=== PATIENT | female | born 1945 | race American Indian/Alaskan Native ===

== ENCOUNTER 2017-11-02 17:55 | Observation (INO) | payer MEDICARE ==
[2017-11-02] MEDS ORDERED: ASPIRIN PO ONE (18:34)
[2017-11-02 19:38] LABS: Hematocrit 35.1 % (30.3-42.9); Hemoglobin 11.1 gm/dl (10.1-14.3); INR 0.99 (0.87-1.13); Mean Corpuscular HGB Conc 32 % (30-34); Mean Corpuscular Volume 81 fl (79-97); Platelet Count 220 K/mm3 (140-440); Red Blood Count 4.34 M/mm3 (3.65-5.03); Red Cell Distribution Width 15.5 % (13.2-15.2)
[2017-11-02 19:47] LABS: BUN/Creatinine Ratio 39; Blood Urea Nitrogen 27 mg/dL (7-17); Calcium 9.8 mg/dL (8.4-10.2); Hemolysis Index 4
[2017-11-02 19:57] LABS: Mean Corpuscular Hemoglobin 26 pg (28-32)
[2017-11-02] MEDS ORDERED: ASPIRIN ONE (20:44)
[2017-11-02 22:05] LABS: Chol/HDL Ratio 3.11 %
[2017-11-03] MEDS ORDERED: NITROSTAT SL ONE (00:58)
[2017-11-03] MEDS ORDERED: ZOFRAN IV ONE (00:59)
[2017-11-03] MEDS ORDERED: SUBLIMAZE IV ONE (00:59)
[2017-11-03] MEDS ORDERED: CATAPRES PO ONE ×2 (00:59→05:07)
--- NOTE | 2017-11-03 01:00 | Emergency Department Report ---
HPI - General Chief Complaint: Headache Time Seen by Provider: 11/03/17 00:51 - HPI HPI: The patient 72-year-old female with a significant history of poorly controlled hypertension, presents for evaluation of headache. The patient reports 1-2 weeks of on and off headache, currently 10/10 in severity, throbbing in quality , frontal in location, and associated with dizziness, left flank pain, and left chest discomfort. She states that her chest discomfort has been mild to moderate in severity, tight in quality, exacerbated with movement, onset earlier today. She shares that she did not take her blood pressure medications today because it exacerbating her dizziness symptoms and headache. The patient denies fever, trauma to the head or chest, neck pain or stiffness, dyspnea, syncope, hemoptysis, paresthesias, or lateralizing motor deficit. ED Past Medical Hx - Past Medical History Hx Hypertension: Yes Hx Heart Attack/AMI: No Hx GERD: Yes Hx Liver Disease: No Hx Renal Disease: No Hx Sickle Cell Disease: No Hx Seizures: No Hx Asthma: No Hx COPD: No Hx Tuberculosis: No Hx HIV: No Additional medical history: hernia - Surgical History Hx Pacemaker: No Hx Internal Defibrillator: No Hx Cholecystectomy: Yes Additional Surgical History: thoracentesis 2010. bladder 2010, partial gastrectomy performed 2010 - Social History Smoking Status: Never Smoker Substance Use Type: None - Medications Home Medications: Home Medications Medication Instructions Recorded Confirmed Last Taken Type Clonidine HCl 1 tab PO BID 06/07/14 11/03/17 02/20/16 History LORazepam [Ativan] 1 tab PO BID 04/19/15 11/03/17 02/18/16 History Carvedilol [Coreg] 12.5 mg PO BID #60 tablet 04/20/15 11/03/17 Unknown Rx Ondansetron [Zofran ODT TAB] 4 mg PO Q8HR 04/24/15 11/03/17 02/19/16 History Sucralfate [Carafate] 2 tsp PO ACHS #1000 ml 02/20/16 11/03/17 Unknown Rx ED Review of Systems ROS: Stated complaint: HEAD PAIN AND BLURRED VISON Other details as noted in HPI Constitutional: denies: fever ENT: denies: throat or neck pain Respiratory: denies: cough, shortness of breath Cardiovascular: reports chest pain Endocrine: denies unexplained weight loss or gain Gastrointestinal: denies: abdominal pain, nausea Genitourinary: denies: dysuria Musculoskeletal: denies: leg swelling Skin: denies: rash Neurological: reports: headache Hematological/Lymphatic: denies: easy bleeding or easy bruising Psych: denies sadness or hopelessness Physical Exam - Physical Exam Vital Signs: Vital Signs 11/02/17 11/03/17 18:20 00:55 Temperature 98.4 F 98 F Pulse Rate 63 87 Respiratory 18 19 Rate Blood Pressure 184/81 Blood Pressure 241/96 [Left] O2 Sat by Pulse 98 98 Oximetry Physical Exam: General: well-nourished, well-developed, no acute distress Head: Normocephalic, atraumatic Eyes: normal sclera, PERRL, EOM intact ENT: Mucous membranes are pink and moist Neck: trachea midline, neck supple, No neck stiffness, no cervical adenopathy Respiratory: Breath sounds equal bilaterally, no wheezing, rales, or rhonchi Cardio: S1 and S2 present, no murmurs, rubs, gallops, capillary refill is brisk Abdomen: Normoactive bowel sounds, soft abdomen, no rigidity, no guarding or rebound tenderness, no flank tenderness Chest WALL/Back: No tenderness to palpation of the chest wall, no CVA tenderness with percussion Musc: No pitting edema Skin: No rash Neuro: alert oriented x4, normal cognition, speech normal no facial drooping, no uvula or tongue deviation on protrusion, no deficit with rotation of neck or shoulder shrug, no obvious gross motor deficit in the upper or lower extremities with flexion or extension at the shoulder, elbow, wrist, hip, knee, or ankle bilaterally, no obvious gross sensation deficit to crude touch or 2 pt discrimination, 2+ symmetric reflexes on DTR testing, no coordination deficit with [id number] or [id number] testing, Babinski downgoing Psych: Normal affect ED Course Vital Signs 11/02/17 11/03/17 18:20 00:55 Temperature 98.4 F 98 F Pulse Rate 63 87 Respiratory 18 19 Rate Blood Pressure 184/81 Blood Pressure 241/96 [Left] O2 Sat by Pulse 98 98 Oximetry ED Medical Decision Making - Lab Data Result diagrams: 11/02/17 19:08 11/02/17 19:08 - Medical Decision Making The patient was seen and examined by myself. The patient is placed on a compliance monitor and continuous pulse ox. On initial evaluation, the patient was found to be in no distress. EKG was negative for findings suggestive of acute cardiac infarct. The patient is given an aspirin, a nitroglycerin tablet, IV fentanyl for her pain, and a tablet of clonidine for her elevated blood pressure. Labs and imaging are obtained. Chest x-ray is negative for pneumothorax, focal consolidation, pulmonary vascular congestion, pleural effusion, or other obvious acute cardiopulmonary disease process. Lab results revealed elevated troponin level, and otherwise labs were non-revealing including WBC, hemoglobin, hematocrit, electrolytes, renal function. CT scan the head is negative for acute intracranial disease process. The patient was reevaluated and reported that their symptoms were improved. As the patient has chest pain and risk factors for development of acute coronary event, the patient will be admitted for close cardiopulmonary monitoring, serial troponins, and evaluation by cardiology. The physician on-call was contacted. They presented to the emergency department and evaluated the patient. They agreed to admit the patient. The ED admit order was placed. The patient was admitted in guarded condition. Critical care attestation.: If time is entered above; I have spent that time in minutes in the direct care of this critically ill patient, excluding procedure time. ED Disposition Clinical Impression: Elevated troponin, Acute non intractable tension-type headache, Hypertensive emergency without congestive heart failure, Acute chest pain Disposition: OP ADMIT IP TO THIS HOSP Is pt being admited?: Yes Does the pt Need Aspirin: Yes Condition: Stable Time of Disposition: 01:00
[2017-11-03] MEDS ORDERED: BABY ASPIRIN PO ONE (01:54)
[2017-11-03] MEDS ORDERED: ULTRAM PO ONE (03:00)
[2017-11-03 04:14] LABS: Color,Urine Yellow (Yellow)
[2017-11-03 04:15] LABS: Bilirubin,Urine NEG (Negative); Blood,Urine NEG (Negative); Mucus,Urine FEW /HPF
[2017-11-03] MEDS ORDERED: SODIUM CHLORIDE FLUSH SYRINGE 10 ML IV PRN (05:08)
[2017-11-03] MEDS ORDERED: MILK OF MAGNESIA PO PRN (05:08)
[2017-11-03] MEDS ORDERED: NORMODYNE IV ONE (05:08)
[2017-11-03] MEDS ORDERED: DULCOLAX PR PRN (05:08)
[2017-11-03] MEDS ORDERED: PHENERGAN PR PRN (05:08)
[2017-11-03] MEDS ORDERED: REGLAN PO PRN (05:08)
[2017-11-03] MEDS ORDERED: TYLENOL PO PRN (05:08)
--- NOTE | 2017-11-03 05:13 | History and Physical Report ---
History of Present Illness Date of examination: 11/03/17 Date of admission: 11/03/17 03:00 Chief complaint: Hypertensive urgency History of present illness: Patient is a 72 year old female with hx of HTN, chronic elevated troponin, PUD, who presents to the hospital with complaints of headche and blurry vision for 3 days. Patient although informed the ED physician that she has been having theses symptoms for 1-2 weeks per ED documentation. She tells me this started following change in BP medication by her physician to Bidil from Clonidin due to uncontrolled BP. She reports that on starting the medication 3 days ago she experienced a left upper quadrant/submammary pain which was self relieving but then continued to experience. She at the time of my visit denies any chest pain but specifically ask if these sysmptoms are related to dementia. The patient denies fever, trauma to the head or chest, neck pain or stiffness, dyspnea, syncope, hemoptysis, paresthesias, or lateralizing motor deficit. Past History Past Medical History: CAD, COPD, hypertension, other (PUD, ?DEMENTIA) Past Surgical History: Other (thoracentesis, partial gastrectomy, bladder surgery) Social history: no significant social history, full code Family history: no significant family history Medications and Allergies Allergies Allergy/AdvReac Type Severity Reaction Status Date / Time adhesive Allergy Unknown Verified 05/31/14 02:36 ciprofloxacin Allergy Unknown Verified 05/31/14 02:36 Home Medications Medication Instructions Recorded Confirmed Last Taken Type Clonidine HCl 1 tab PO BID 06/07/14 11/03/17 02/20/16 History LORazepam [Ativan] 1 tab PO BID 04/19/15 11/03/17 02/18/16 History Carvedilol [Coreg] 12.5 mg PO BID #60 tablet 04/20/15 11/03/17 Unknown Rx Ondansetron [Zofran ODT TAB] 4 mg PO Q8HR 04/24/15 11/03/17 02/19/16 History Sucralfate [Carafate] 2 tsp PO ACHS #1000 ml 02/20/16 11/03/17 Unknown Rx Active Meds: Active Medications Acetaminophen (Tylenol) 650 mg PO Q4H PRN PRN Reason: Pain, Mild (1-3) Amitriptyline HCl (Elavil) 10 mg PO QHS AMELIE Bisacodyl (Dulcolax) 10 mg [place] QDAY PRN PRN Reason: Constipation Carvedilol (Coreg) 12.5 mg PO BID [facility] Clonidine HCl (Catapres) 0.2 mg PO TID [facility]IE Hydralazine HCl (Apresoline) 50 mg PO Q8HR [facility] Hydrochlorothiazide (Hctz) 12.5 mg PO QDAY [facility] Ceftriaxone Sodium 1 gm/ (Sodium Chloride) 20 mls @ 20 mls/10 min IV Q24HR AMELIE ; Protocol Labetalol HCl (Normodyne) 10 mg IV ONCE ONE Stop: 11/03/17 05:09 Lisinopril (Zestril) 20 mg PO QDAY [facility]IE Lorazepam (Ativan) mg PO BID [facility] Magnesium Hydroxide (Milk Of Magnesia) 30 ml PO Q4H PRN PRN Reason: Constipation Metoclopramide HCl (Reglan) 10 mg PO Q6H PRN PRN Reason: Nausea And Vomiting Ondansetron HCl (Zofran Odt) 4 mg PO Q8HR [facility] Pravastatin Sodium (Pravachol) 80 mg PO QHS AMELIE Promethazine HCl (Phenergan) 25 mg [place] Q6H PRN PRN Reason: Nausea And Vomiting Sodium Chloride (Sodium Chloride Flush Syringe 10 Ml) 10 ml INJ PRN PRN PRN Reason: LINE FLUSH Sucralfate (Carafate) 1 gm PO ACHS [facility] Review of Systems All systems: negative Constitutional: malaise Eyes: bilateral: blurred vision Ears, nose, mouth and throat: headache Cardiovascular: chest pain Exam - Physical Exam Narrative exam: VITAL SIGNS: Reviewed. GENERAL: The patient appeared well nourished and normally developed. Vital signs as documented. HEAD: No signs of head trauma. EYES: Pupils are equal. Extraocular motions intact. EARS: Hearing grossly intact. MOUTH: Oropharynx is normal. NECK: No adenopathy, no JVD. CHEST: Chest with clear breath sounds bilaterally. No wheezes, rales, or rhonchi. CARDIAC: Regular rate and rhythm. S1 and S2, without murmurs, gallops, or rubs. VASCULAR: No Edema. Peripheral pulses normal and equal in all extremities. ABDOMEN: Soft, without detectable tenderness. No sign of distention. No rebound or guarding, and no masses palpated. Bowel Sounds normal. MUSCULOSKELETAL: Good range of motion of all major joints. Extremities without clubbing, cyanosis or edema. NEUROLOGIC EXAM: Alert and oriented x 3. No focal sensory or strength deficits. Speech normal. Follows commands. PSYCHIATRIC: Mood normal. SKIN: No rash or lesions. - Constitutional Vitals: Temp Pulse Resp BP Pulse Ox 98 F 55 L 11 L 155/81 98 11/03/17 00:55 11/03/17 04:01 11/03/17 04:01 11/03/17 04:01 11/03/17 00:55 Results - Labs CBC & Chem 7: 11/02/17 19:08 11/02/17 19:08 Labs: Laboratory Last Values WBC 8.4 K/mm3 (4.5-11.0) 11/02/17 19:08 RBC 4.34 M/mm3 (3.65-5.03) 11/02/17 19:08 Hgb 11.1 gm/dl (10.1-14.3) 11/02/17 19:08 Hct 35.1 % (30.3-42.9) 11/02/17 19:08 MCV 81 fl (79-97) 11/02/17 19:08 MCH 26 pg (28-32) L 11/02/17 19:08 MCHC 32 % (30-34) 11/02/17 19:08 RDW 15.5 % (13.2-15.2) H 11/02/17 19:08 Plt Count 220 K/mm3 (140-440) 11/02/17 19:08 PT 13.6 Sec. (12.2-14.9) 11/02/17 19:08 INR 0.99 (0.87-1.13) 11/02/17 19:08 APTT 32.0 Sec. (24.2-36.6) 11/02/17 19:08 Sodium 139 mmol/L (137-145) 11/02/17 19:08 Potassium 4.1 mmol/L (3.6-5.0) 11/02/17 19:08 Chloride 104.9 mmol/L (98-107) 11/02/17 19:08 Carbon Dioxide 23 mmol/L (22-30) 11/02/17 19:08 Anion Gap 15 mmol/L 11/02/17 19:08 BUN 27 mg/dL (7-17) H 11/02/17 19:08 Creatinine 0.7 mg/dL (0.7-1.2) 11/02/17 19:08 Estimated GFR > 60 ml/min 11/02/17 19:08 BUN/Creatinine Ratio 39 % 11/02/17 19:08 Glucose 112 mg/dL (65-100) H 11/02/17 19:08 Calcium 9.8 mg/dL (8.4-10.2) 11/02/17 19:08 Troponin T 0.087 ng/mL (0.00-0.029) H D 11/03/17 01:18 Triglycerides 156 mg/dL (2-149) H 11/02/17 20:48 Cholesterol 131 mg/dL (50-199) 11/02/17 20:48 LDL Cholesterol Direct 73 mg/dL (50-130) 11/02/17 20:48 HDL Cholesterol 42 mg/dL (40-59) 11/02/17 20:48 Cholesterol/HDL Ratio 3.11 % 11/02/17 20:48 Urine Color Yellow (Yellow) 11/02/17 Unknown Urine Turbidity Clear (Clear) 11/02/17 Unknown Urine pH 6.0 (5.0-7.0) 11/02/17 Unknown Ur Specific [place] 1.012 (1.003-1.030) 11/02/17 Unknown Urine Protein 100 mg/dl mg/dL (Negative) 11/02/17 Unknown Urine Glucose (UA) Neg mg/dL (Negative) 11/02/17 Unknown Urine Ketones Neg mg/dL (Negative) 11/02/17 Unknown Urine Blood Neg (Negative) 11/02/17 Unknown Urine Nitrite Neg (Negative) 11/02/17 Unknown Urine Bilirubin Neg (Negative) 11/02/17 Unknown Urine Urobilinogen 2.0 mg/dL (<2.0) 11/02/17 Unknown Ur Leukocyte Esterase Lg (Negative) 11/02/17 Unknown Urine WBC (Auto) 10.0 /HPF (0.0-6.0) H 11/02/17 Unknown Urine RBC (Auto) 7.0 /HPF (0.0-6.0) 11/02/17 Unknown U Epithel Cells (Auto) 3.0 /HPF (0-13.0) 11/02/17 Unknown Urine Mucus Few /HPF 11/02/17 Unknown - Imaging and Cardiology CT Scan - head: image reviewed (no acute pathology) Assessment and Plan Assessment and plan: Patient is a 72 year old female with hx of HTN, chronic elevated troponin, PUD, who presents to the hospital with complaints of headche and blurry vision for 3 days. Patient although informed the ED physician that she has been having theses symptoms for 1-2 weeks per ED documentation. She tells me this started following change in BP medication by her physician to Bidil from Clonidin due to uncontrolled BP. She reports that on starting the medication 3 days ago she experienced a left upper quadrant/submammary pain which was self relieving but then continued to experience. She at the time of my visit denies any chest pain but specifically ask if these sysmptoms are related to dementia. The patient denies fever, trauma to the head or chest, neck pain or stiffness, dyspnea, syncope, hemoptysis, paresthesias, or lateralizing motor deficit. Hypertensive urgency Type 2 MT-chronically elevated Troponin PUD TIA with Blurry vision Acute Metabolic encephalopathy-Now resolved Bradycardia Atypical Chest pain Acute Cystitis Plan * Admit to Telemetry * Consult cardiology * Continue clonidine and other home meds, * Bradycardia precludes use of IV BB, if BP remains uncontrolled patient may need ICU and cardene drip * TIA work up, lipid profile, MRI, carotid ultrasound, asa and statin * PPI * dvt.gi prophy * The high probability of a clinically significant, sudden or life threatening deterioration of the [CARDIAC, NEURO] system(s) required my full and direct attention, intervention and personal management. The aggregate critical care time was [35] minutes. This time is in addition to time spent performing reported procedures but includes the following: [X] Data Review and interpretation [X] Patient assessment and monitoring of vital signs [X] Documentation [X] Medication orders and management Advance Directives: Yes Plan of care discussed with patient/family: Yes
[2017-11-03] MEDS: APRESOLINE PO SCH ×2 (06:39→14:34)
[2017-11-03] MEDS: ZOFRAN ODT PO SCH ×3 (06:40→21:11)
[2017-11-03] MEDS: CARAFATE PO SCH ×4 (09:22→21:18)
[2017-11-03] MEDS: CATAPRES PO SCH ×3 (09:22→21:18)
--- NOTE | 2017-11-03 09:59 | Cat Scan Report ---
FINAL REPORT EXAM: CT HEAD/BRAIN WO CON HISTORY: blurred vision/dizziness/HTN COMPARISON: CT of the head performed on 04/24/2015 TECHNIQUE: Multiple contiguous axial images were obtained from the skullbase to the vertex without administration of IV contrast. FINDINGS: There age related cerebral cortical atrophy. There is no parenchymal hemorrhage or extra-axial fluid collection. There is no mass or mass effect. There is no acute territorial infarct. There are scattered areas of decreased attenuation in the subcortical and periventricular white matter, likely due to chronic microvascular ischemic change. The ventricles are midline. The subarachnoid spaces and basilar cisterns are clear. There is no skull fracture. The paranasal sinuses and mastoid air cells are clear. The bilateral orbits are intact. IMPRESSION: No acute intracranial abnormality.
[2017-11-03] MEDS ORDERED: HCTZ PO SCH (10:00)
[2017-11-03] MEDS ORDERED: ZESTRIL PO SCH (10:00)
[2017-11-03] MEDS: COREG PO SCH ×2 (10:20→21:20)
[2017-11-03] MEDS: ATIVAN PO SCH ×2 (10:20→21:18)
--- NOTE | 2017-11-03 12:21 | Magnetic Resonance Report ---
MRI OF THE BRAIN WITHOUT CONTRAST: HISTORY: CVA COMPARISON: CT head dated 11/02/17. PROCEDURE: Multiplanar, multisequence MR imaging of the brain without IV contrast was performed. FINDINGS: Mild diffuse cortical volume loss and mild nonspecific chronic white matter changes are identified. Otherwise, the brain parenchyma signal intensity and its felton white interface are within normal limits on all sequences. No evidence for acute ischemia, hemorrhage or mass. No chronic infarct or extra-axial fluid collection. The midline structures are central. The basal cisterns are patent. Normal ventricular size. The orbital cavities and sella turcica demonstrate no abnormality. The visualized paranasal sinuses and mastoid air cells are well aerated. IMPRESSION: No acute process. Volume loss and nonspecific chronic white matter changes.
--- NOTE | 2017-11-03 12:22 | Magnetic Resonance Report ---
MRA HEAD WITHOUT CONTRAST HISTORY: CVA. [id number] imaging with MIP reformations of [place] is submitted. The arteries appear widely patent and free of hemodynamically significant stenosis, aneurysm or dissection. IMPRESSION: Unremarkable MRA head.
[2017-11-03] MEDS: cefTRIAXone 1 GM in NACL 0.9% 20 ML IV SCH (12:35)
--- NOTE | 2017-11-03 16:20 | Consultation ---
History of Present Illness Consult date: 11/03/17 Consult reason: hypertension History of present illness: This is a 72yr old woman with poorly controlled Hypertension who presents to the ED with complaints of dizziness, blurred vision and headaches. Patient is known to [facility]. Just a week ago, she was placed on Bidil for optimal blood pressure management. 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 Patient was noted severely hypertensive on presentation, with a blood pressure with a systolic of 184 and admitted for further management. A cardiac consultation was requested. Patient denies chest pain, shortness of breath and palpitations. She denies syncope. Her most recent cardiac workup was done 4 months ago. She had a normal perfusion thallium stress test and normal left ventricular systolic function, ejection fraction 55-60% by echocardiogram. Medications and Allergies Allergies Allergy/AdvReac Type Severity Reaction Status Date / Time adhesive Allergy Unknown Verified 05/31/14 02:36 ciprofloxacin Allergy Unknown Verified 05/31/14 02:36 Home Medications Medication Instructions Recorded Confirmed Last Taken Type Clonidine HCl 1 tab PO BID 06/07/14 11/03/17 02/20/16 History LORazepam [Ativan] 1 tab PO BID 04/19/15 11/03/17 02/18/16 History Carvedilol [Coreg] 12.5 mg PO BID #60 tablet 04/20/15 11/03/17 Unknown Rx Ondansetron [Zofran ODT TAB] 4 mg PO Q8HR 04/24/15 11/03/17 02/19/16 History Sucralfate [Carafate] 2 tsp PO ACHS #1000 ml 02/20/16 11/03/17 Unknown Rx Active Meds: Active Medications Acetaminophen (Tylenol) 650 mg PO Q4H PRN PRN Reason: Pain, Mild (1-3) Amitriptyline HCl (Elavil) 10 mg PO QHS [facility]ELIE Bisacodyl (Dulcolax) 10 mg [place] QDAY PRN PRN Reason: Constipation Carvedilol (Coreg) 12.5 mg PO BID [facility] Last Admin: 11/03/17 10:20 Dose: Not Given Clonidine HCl (Catapres) 0.2 mg PO TID [facility] Last Admin: 11/03/17 14:35 Dose: 0.2 mg Hydralazine HCl (Apresoline) 50 mg PO Q8HR [facility] Last Admin: 11/03/17 14:34 Dose: Not Given Hydrochlorothiazide (Hctz) 12.5 mg PO QDAY [facility] Last Admin: 11/03/17 10:20 Dose: Not Given Ceftriaxone Sodium 1 gm/ (Sodium Chloride) 20 mls @ 20 mls/10 min IV Q24HR [facility] ; Protocol Last Admin: 11/03/17 12:35 Dose: 20 mls/10 min Lisinopril (Zestril) 20 mg PO QDAY [facility] Last Admin: 11/03/17 10:25 Dose: 20 mg Lorazepam (Ativan) 1 mg PO BID [facility] Last Admin: 11/03/17 10:20 Dose: 1 mg Magnesium Hydroxide (Milk Of Magnesia) 30 ml PO Q4H PRN PRN Reason: Constipation Metoclopramide HCl (Reglan) 10 mg PO Q6H PRN PRN Reason: Nausea And Vomiting Ondansetron HCl (Zofran Odt) 4 mg PO Q8HR [facility] Last Admin: 11/03/17 14:35 Dose: 4 mg Pravastatin Sodium (Pravachol) 80 mg PO QHS [facility]ELIE Promethazine HCl (Phenergan) 25 mg [place] Q6H PRN PRN Reason: Nausea And Vomiting Sodium Chloride (Sodium Chloride Flush Syringe 10 Ml) 10 ml IV PRN PRN PRN Reason: LINE FLUSH Sucralfate (Carafate) 1 gm PO ACHS [facility] Last Admin: 11/03/17 13:15 Dose: 1 gm Physical Examination Vital Signs Temp Pulse Resp BP Pulse Ox 98.4 F 63 18 184/81 98 11/02/17 18:20 11/02/17 18:20 11/02/17 18:20 11/02/17 18:20 11/02/17 18:20 General appearance: no acute distress HEENT: Positive: PERRL Cardiac: Positive: Reg Rate and Rhythm Lungs: Positive: Decreased Breath Sounds Neuro: Positive: Grossly Intact Results 11/02/17 19:08 11/02/17 19:08 Coagulation 11/02/17 Range/Units 19:08 PT 13.6 (12.2-14.9) Sec. INR 0.99 (0.87-1.13) APTT 32.0 (24.2-36.6) Sec. Lipids 11/02/17 Range/Units 20:48 Triglycerides 156 H (2-149) mg/dL Cholesterol 131 (50-199) mg/dL HDL Cholesterol 42 (40-59) mg/dL Cholesterol/HDL Ratio 3.11 % CBC 11/02/17 Range/Units 19:08 WBC 8.4 (4.5-11.0) K/mm3 RBC 4.34 (3.65-5.03) M/mm3 Hgb 11.1 (10.1-14.3) gm/dl Hct 35.1 (30.3-42.9) % Plt Count 220 (140-440) K/mm3 Comprehensive Metabolic Panel 11/02/17 Range/Units 19:08 Sodium 139 (137-145) mmol/L Potassium 4.1 (3.6-5.0) mmol/L Chloride 104.9 (98-107) mmol/L Carbon Dioxide 23 (22-30) mmol/L BUN 27 H (7-17) mg/dL Creatinine 0.7 (0.7-1.2) mg/dL Glucose 112 H (65-100) mg/dL Calcium 9.8 (8.4-10.2) mg/dL Assessment and Plan - Patient Problems (1) Uncontrolled hypertension Current Visit: No Status: Acute
[2017-11-03] MEDS: DIOVAN PO SCH ×2 (18:53→19:03)
[2017-11-03] MEDS ORDERED: ELAVIL PO SCH (22:00)
[2017-11-03] MEDS ORDERED: PRAVACHOL PO SCH (22:00)
[2017-11-04] MEDS: ZOFRAN ODT PO SCH (06:49)
[2017-11-04] MEDS: CATAPRES PO SCH (06:49)
[2017-11-04 08:35] VITALS: BP 126/65
[2017-11-04] MEDS: CARAFATE PO SCH (08:59)
[2017-11-04] MEDS: DIOVAN PO SCH (10:07)
[2017-11-04] MEDS: ATIVAN PO SCH (10:08)
[2017-11-04] MEDS: cefTRIAXone 1 GM in NACL 0.9% 20 ML IV SCH (10:08)
[2017-11-04] MEDS: COREG PO SCH (10:08)
--- NOTE | 2017-11-04 11:13 | Discharge Summary ---
Providers - Providers Date of Admission: 11/03/17 03:00 Attending physician: CHADWICK CASAS MD 11/03/17 05:08 Consult to Physician [CONS] Routine Comment: Consulting Provider: BROOK ALAS Physician Instructions: Reason For Exam: Hypertensive urgency 11/03/17 05:09 Occupational Therapy Evaluate and Treat [CONS] Routine Comment: Reason For Exam: Neuro deficits Physical Therapy Evaluation and Treat [CONS] Routine Comment: Reason For Exam: Neuro deficits Primary care physician: FREDY MILAN Hospitalization Reason for admission: ENCEPHALOPATHY Condition: Stable Hospital course: Patient is a 72 year old female with hx of HTN, chronic elevated troponin, PUD, who presents to the hospital with complaints of headche and blurry vision for 3 days. Patient although informed the ED physician that she has been having theses symptoms for 1-2 weeks per ED documentation. She tells me this started following change in BP medication by her physician to Bidil from Clonidin due to uncontrolled BP. She reports that on starting the medication 3 days ago she experienced a left upper quadrant/submammary pain which was self relieving but then continued to experience. She at the time of my visit denies any chest pain but specifically ask if these sysmptoms are related to dementia. The patient denies fever, trauma to the head or chest, neck pain or stiffness, dyspnea, syncope, hemoptysis, paresthesias, or lateralizing motor deficit. cardiology evaluated the patient and changed hypertension with valsartan 160 mg daily, in addition to carvedilol. We will stop hydralazine, BiDil, clonidine. Anticipate discharge within 24 hours once blood pressure is well-controlled on valsartan. Patient improved with no new complaints. she was treated with abx for UTI. COUNSELLING WAS PROVIDED Hypertensive urgency Type 2 IN-chronically elevated Troponin PUD TIA with Blurry vision Acute Metabolic encephalopathy-Now resolved Bradycardia Atypical Chest pain Acute Cystitis Disposition: TO HOME OR SELFCARE Time spent for discharge: 35 MINS Core Measure Documentation - Palliative Care Palliative Care/ Comfort Measures: Not Applicable - Core Measures Any of the following diagnoses?: none - VTE Discharge Requirements Deep Vein Thrombosis/Pulmonary Embolism Present on Admission: No Exam - Physical Exam Narrative exam: VITAL SIGNS: Reviewed. GENERAL: The patient appeared well nourished and normally developed. Vital signs as documented. HEAD: No signs of head trauma. EYES: Pupils are equal. Extraocular motions intact. EARS: Hearing grossly intact. MOUTH: Oropharynx is normal. NECK: No adenopathy, no JVD. CHEST: Chest with clear breath sounds bilaterally. No wheezes, rales, or rhonchi. CARDIAC: Regular rate and rhythm. S1 and S2, without murmurs, gallops, or rubs. VASCULAR: No Edema. Peripheral pulses normal and equal in all extremities. ABDOMEN: Soft, without detectable tenderness. No sign of distention. No rebound or guarding, and no masses palpated. Bowel Sounds normal. MUSCULOSKELETAL: Good range of motion of all major joints. Extremities without clubbing, cyanosis or edema. NEUROLOGIC EXAM: Alert and oriented x 3. No focal sensory or strength deficits. Speech normal. Follows commands. PSYCHIATRIC: Mood normal. SKIN: No rash or lesions. - Constitutional Vitals: Temp Pulse Resp BP Pulse Ox 98.5 F 53 L 18 126/65 97 11/04/17 07:50 11/04/17 09:12 11/04/17 07:50 11/04/17 07:50 11/04/17 07:50 Plan Activity: advance as tolerated, fall precautions Diet: low fat, low salt Special Instructions: record daily weights, record daily BP diary Follow up with: FREDY MILAN MD [Primary Care Provider] - 3-5 Days BROOK ALAS MD [Staff Physician] - 7 Days Prescriptions: Valsartan [Diovan] 160 mg PO DAILY #30 tablet
--- NOTE | 2017-11-04 12:22 | Progress Note ---
Assessment and Plan - Patient Problems (1) Uncontrolled hypertension Current Visit: No Status: Acute Plan to address problem: Hypertension -improved Her most recent cardiac workup was done 4 months ago. normal perfusion thallium stress test. normal left ventricular systolic function, ejection fraction 55-60% by echocardiogram. Conservative cardiac management. Subjective Date of service: 11/04/17 Interval history: Patient has no cardiac complaints. Her blood pressure has improved. Objective Vital Signs Temp Pulse Resp BP Pulse Ox 11/04/17 09:12 53 L 11/04/17 07:50 98.5 F 56 L 18 126/65 97 11/04/17 06:49 67 146/64 11/04/17 04:35 98.3 F 56 L 18 146/64 99 11/03/17 23:33 98.1 F 53 L 18 146/68 98 11/03/17 21:20 62 192/87 11/03/17 21:18 62 192/87 11/03/17 19:26 98.4 F 72 18 192/81 99 11/03/17 17:00 169/85 11/03/17 15:00 144/75 11/03/17 14:35 70 154/76 11/03/17 14:34 70 154/76 11/03/17 14:27 154/76 11/03/17 12:41 77 20 153/72 11/03/17 12:31 67 21 153/72 11/03/17 12:21 67 19 153/72 - Physical Examination General: No Apparent Distress HEENT: Positive: PERRL Cardiac: Positive: Bradycardia Neuro: Positive: Grossly Intact
--- NOTE | 2017-11-09 13:14 | Query-Infection ---
Yenifer Eastman___Luciana Date:__11/09/2017 [employer]/CDS:___Hanny/Venita Phone#:___[phone] Exercise your independent professional judgment when responding to this query. Questions asked do not imply a particular answer is desired or expected. We greatly appreciate your clarification on this issue. Clinical Documentation States: 72 Year old female was admitted on 11/03/2017 with complaints of headache and blurry vision for 3 days. The Discharge summary stated "Acute Metabolic encephalopathy-Now resolved Acute Cystitis." TX: IV Ceftriaxone. Clinical findings show: (please check applicable parameters) ND (11/03): 105 RR (11/03): 30 Infection, known /suspected, with some of the following indicators; Specify the infection: 3 General parameters [ ] Fever (core temp >38.30C or 100.40F) [ ] Hypothermia (core temp <36C) [X] Heart rate >90 bpm [X] Tachypnea: >20 bpm or pCO2 < 32 mmHg [X] Altered mental status [ ] Significant edema / +ve fluid balance (>20 ml/kg 24 h) [ ] Hyperglycemia (Bl. glucose >110 mg/dl) w/o diabetes Inflammatory parameters [ ] Leukocytosis (white blood cell count >12,000/l) [ ] Leukopenia (white blood cell count <4,000/l) [ ] Bandemia (immature WBC > 10%) [ ] Leucocyte Left Shift [ ] Plasma procalcitonin>2 SD above the normal value Hemodynamic and tissue perfusion parameters [ ] Arterial hypotension(SBP <90 mmHg, MAP <70 mmHg,or a SBP drop >40 mmHg in adults) [ ] Hyperlactatemia (>3 mmol/l) [ ] Anion Gap (> 11mEG/l) [ ] Decreased capillary refill or mottling Organ dysfunction parameters [ ] Arterial hypoxemia (PaO2/FIO2 <300) [ ] Creatinine increase =0.5 mg/dl [ ] Acute oliguria (urine output <0.5 ml | kg |h or 45 mM/l for at least 2 hrs) [ ] Coagulation abnormalities (INR >1.5 or activated partial thromboplastin time >60 s) [ ] Ileus (absent anne marie wel sounds) [ ] Thrombocytopenia (platelet count <100,000/l) [ ] Hyperbilirubinemia (plasma total bilirubin >4 mg/dl) According to the clinical indications above, can Bacteremia be further specified? If so, please indicate below and in your Progress Notes and/ or Discharge Summary. Indicate if the condition was present on admission. PHYSICIAN RESPONSE: [ X] Sepsis [ ] Severe Sepsis [ ] Septic Shock [ ] Septicemia [ ] Sepsis now resolved [ ] SIRS due to non-infectious cause with organ dysfunction [ ] SIRS due to non-infectious cause without organ dysfunction [ ] Other: [ ] Comment/Explanation: Present on Admission: [ X] Yes (Y) [ ] Clinically undeterminable (W) [ ] No (N) [ ] Ruled Out Please also document response in your Progress Notes and/or Discharge Summary and indicate if the condition was present on admission Notes: SIRS/ SIRS WITH ORGAN DYSFUNCTION Systemic inflammatory response syndrome (SIRS) generally refers to the systemic response to trauma/mann or other insult such as Acute Myocardial Infarction, Acute Pancreatitis, and Major Surgery with symptoms including fever, tachycardia , tachypnea, and leukocytosis (1). BACTEREMIA Presence of viable bacteria in the circulating blood (2). This term is reserved for patients that do not manifest above SIRS response. SEPTICEMIA Generally refers to a systemic disease associated with the presence of pathological microorganisms or toxins in the blood, which can include bacteria, viruses, fungi or other organisms (1). SEPSIS Generally refers to SIRS due infection (1). SEVERE SEPSIS Generally refers to sepsis associated with acute organ dysfunction (1). SEPTIC SHOCK Generally refers to circulatory failure associated with severe sepsis (2), and defined as hypotension or hypoperfusion despite adequate fluid resuscitation (1 hour) (3). REFERENCES: 1. [employer]/Society of Critical Care Medicine Consensus Conference. Definitions for sepsis and organ failure and guidelines for the use of innovative therapies in sepsis. Critical Care Med 1992;20:864 - 74. 2. Surya andersen MM, Héctor MP, Rojelio ALBINA, Bertin E, Sujit D, Alpesh D, Terrell J, Lucretia SM , Yadiel QUACH, Sydney G; International Sepsis Definitions Conference. 2001 SCCM/ESICM/ACCP/ATS/SIS International Sepsis Definitions Conference. Intensive Care Med. 2002 Apr;29(4):530-8. Epub 2002Aug 12. Review. PubMed PMID:[id number] 3. ICD-9-CM Official Guidelines for Coding and Reporting 4. Medscape Drugs, Diseases and Procedures references 5. Sue Textbook of Internal Medicine. 18th Edition MTDD
--- NOTE | 2017-11-11 15:11 | Vascular Lab Report ---
CAROTID DUPLEX STUDY: RIGHT PSVEDV CCA PROX:716 CCA DIST:626 ICA PROX:869 ICA MID:7714 ICA DIST:6514 ECA: 53 VERT: 36 8 LEFT PSVEDV CCA PROX:8110 CCA DIST:697 ICA PROX:4610 ICA MID:5712 ICA DIST:6219 ECA: 55 VERT: 44 12 REASON FOR EXAM: Stroke. COMMENTS ON THE RIGHT: Doppler frequency analysis is consistent with 16 to 49 percent diameter reduction of the internal carotid artery. Minimal amount of plaque is seen. The common carotid artery is patent. The external carotid artery is patent. The vertebral artery has antegrade flow. COMMENTS ON THE LEFT: Doppler frequency analysis is consistent with 16 to 49 percent diameter reduction of the internal carotid artery. Minimal amount of plaque is seen. The common carotid artery is patent. The external carotid artery is patent. The vertebral artery has antegrade flow. IMPRESSION: Less than 50% diameter reduction in the internal carotid arteries bilaterally.
== END 2017-11-04 16:50 | disposition home or self-care (01) ==
LOC: ED 17:55 → INTOOBSV 11-03 03:00 → 4A 11-03 03:00
PROVIDERS: ADMIT Internal Medicine; ATTEND Internal Medicine
DX: I16.0 Hypertensive urgency (principal); I21.A1 Myocardial infarction type 2; G93.41 Metabolic encephalopathy; N30.00 Acute cystitis without hematuria; G45.9 Transient cerebral ischemic attack, unspecified; G44.209 Tension-type headache, unspecified, not intractable; I25.10 Atherosclerotic heart disease of native coronary artery without angina pectoris; J44.9 Chronic obstructive pulmonary disease, unspecified; R07.89 Other chest pain; K21.9 Gastro-esophageal reflux disease without esophagitis; I10 Essential (primary) hypertension; Z90.49 Acquired absence of other specified parts of digestive tract; Z88.1 Allergy status to other antibiotic agents; Z88.8 Allergy status to other drugs, medicaments and biological substances
CPT/HCPCS: 36415; 70450; 70544; 70551; 80048; 80061; 81001; 84484; 85027; 85610; 85730; 93005; 93010; 93880; 96374; 97116; 97161; 99285; A9270; G0378; G8978; G8979; J0696; J2405; J3010; Q0162

== ENCOUNTER 2020-01-07 20:42 | Emergency (ER) | payer MEDICARE | END 2020-01-07 23:40 | disposition left against medical advice (07) | LOC: ED 20:42 | DX: S49.91XA Unspecified injury of right shoulder and upper arm, initial encounter (principal); Z53.21 Procedure and treatment not carried out due to patient leaving prior to being seen by health care provider; W19.XXXA Unspecified fall, initial encounter; Y93.89 Activity, other specified; Y92.89 Other specified places as the place of occurrence of the external cause; Y99.8 Other external cause status ==